=== PATIENT | female | born 1970 | race African-American/Black ===

== ENCOUNTER 2017-06-16 17:57 | Emergency (ER) | payer OTHER ==
[~2017-06-16] VITALS: Ht 157.5 cm; Wt 72.6 kg
[~2017-06-16 17:57] MED LIST: ACYCLOVIR 400400 MG PO; CLEOCIN HCL300 MG PO; EXCEDRIN MIGRA1 EAC1 PO; NORCO 5-325 TA1 EACH PO; ONDANSETRON HCL4 M2 PO; SINGULAIR 10 MG10 M1 PO; SUDAFED 12 HOU120 MG PO; ZYRTEC10 M5 PO
[2017-06-16 17:58] VITALS: BP 116/66
[2017-06-16] MEDS ORDERED: CLEOCIN HCL300 MG PO (18:30)
== END 2017-06-16 18:42 | disposition home or self-care (01) ==
LOC: ER 17:57
DX: L02.211 Cutaneous abscess of abdominal wall (principal); F10.99 Alcohol use, unspecified with unspecified alcohol-induced disorder; Z88.1 Allergy status to other antibiotic agents

== ENCOUNTER 2017-10-14 05:20 | Emergency (ER) | payer OTHER ==
[~2017-10-14] VITALS: Ht 157.5 cm; Wt 72.6 kg
[2017-10-14 05:28] VITALS: BP 123/74
[2017-10-14] MEDS ORDERED: FLEXERIL PO (05:47)
== END 2017-10-14 06:18 | disposition home or self-care (01) ==
LOC: ER 05:20
DX: M54.5 Low back pain (principal); F10.99 Alcohol use, unspecified with unspecified alcohol-induced disorder; Z86.14 Personal history of Methicillin resistant Staphylococcus aureus infection; Z88.2 Allergy status to sulfonamides